=== PATIENT | male | born 1985 | race Hispanic/Latino ===

== ENCOUNTER 2024-12-05 11:59 | Emergency (ER) | payer OTHER ==
[~2024-12-05] VITALS: Ht 185.4 cm; Wt 86.2 kg
[2024-12-05 12:02] VITALS: PULSE 55; RESP 14; TEMP 98.2; O2SAT 99
[2024-12-05] MEDS ORDERED: KETOROLAC TROMETHAMINE 30 MG/ML VIAL ONE (12:08)
[2024-12-05] MEDS ORDERED: DEXAMETHASONE SOD PHOS INJ 4 MG/ML SDV ONE (12:08)
[2024-12-05] MEDS ORDERED: MELOXICAM7.5 MG PO (12:14)
[2024-12-05] MEDS ORDERED: METHOCARBAMOL750 MG PO (12:14)
[2024-12-05] MEDS: KETOROLAC TROMETHAMINE 30 MG/ML VIAL IM STA (12:44)
[2024-12-05] MEDS: DEXAMETHASONE SOD PHOS INJ 4 MG/ML SDV IM ONE (12:45)
== END 2024-12-05 12:58 | disposition home or self-care (01) ==
LOC: FSED 12:04
DX: M54.50 Low back pain, unspecified (principal); Y93.E6 Activity, residential relocation
CPT/HCPCS: 99283; J1100; J1885

== ENCOUNTER 2025-02-04 14:11 | Emergency (ER) | payer OTHER ==
[~2025-02-04] VITALS: Ht 185.4 cm; Wt 84.2 kg
[~2025-02-04 14:11] MED LIST: MELOXICAM7.5 MG PO; METHOCARBAMOL750 MG PO
[2025-02-04 14:15] VITALS: PULSE 61; RESP 20; TEMP 98.2; O2SAT 96
[2025-02-04] MEDS ORDERED: KETOROLAC TROME10 MG PO (14:30)
[2025-02-04] MEDS ORDERED: TYLENOL325 MG PO (14:30)
[2025-02-04] MEDS ORDERED: DEXAMETHASONE SOD PHOS INJ 4 MG/ML SDV ONE (14:38)
[2025-02-04] MEDS: ACETAMINOPHEN 325 MG TAB PO ONE (14:40)
[2025-02-04] MEDS: DEXAMETHASONE SOD PHOS 10 MG/1 ML VIAL IM ONE (14:40)
[2025-02-04] MEDS: KETOROLAC TROMETHAMINE 30 MG/ML VIAL IM ONE (14:40)
== END 2025-02-04 15:17 | disposition home or self-care (01) ==
LOC: FSED 14:17
DX: M54.42 Lumbago with sciatica, left side (principal); M54.41 Lumbago with sciatica, right side; G89.29 Other chronic pain
CPT/HCPCS: 72131; 99284; J1100 ×2; J1885